=== PATIENT | female | born 1985 | race Caucasian/White ===

== ENCOUNTER 2017-03-11 13:46 | Emergency (ER) | payer SELFPAY ==
[~2017-03-11] VITALS: Ht 162.6 cm; Wt 84.7 kg
[2017-03-11 13:48] VITALS: BP 112/63; PULSE 66; RESP 15; TEMP 98.2; O2SAT 99
--- NOTE | 2017-03-11 16:32 | PD ---
HPI Chief Complaint: Eye Problems/Injury Time Seen by Provider: 15:20 Travel History International Travel<30 days: No Contact w/Intl Traveler<30days: No Traveled to known affect area: No History of Present Illness HPI 31-year-old female presents to the emergency room for evaluation of bilateral eye drainage, redness, and itching for the past week. Patient is [place]- speaking and appellate law clerk was used throughout history and physical exam. Patient states she developed bilateral itching but has not done anything for her symptoms. Drainage is clear and constant. She has associated cough and sore throat but denies any other upper respiratory symptoms. Denies fever. She denies eye pain, changes in visual acuity, and photophobia. She does not wear contacts. Denies chronic medical conditions or daily medications. [facility] Social History Tobacco Use: No Allergies-Medications (Allergen,Severity, Reaction): Coded Allergies: No Known Allergies (Unverified , 03/11/17) Reported Meds & Prescriptions Reported Meds & Active Scripts Active No Active Prescriptions or Reported Medications Review of Systems Except as stated in HPI: all other systems reviewed are Neg Physical Exam Narrative GENERAL: Well-nourished, well-developed female in no acute distress. Afebrile. Ambulatory. SKIN: Focused skin assessment warm/dry. HEAD: Normocephalic. EYES: PERRL, EOMI without pain. No proptosis. No significant injection. No scleral icterus. No obvious drainage. Fluorescein staining is negative for bilateral eyes. Visual acuity is 20/50 in the left and 20/25 in the right. NECK: Supple, trachea midline. No JVD or lymphadenopathy. CARDIOVASCULAR: Regular rate and rhythm without murmurs, gallops, or rubs. RESPIRATORY: Breath sounds equal bilaterally. No accessory muscle use. PSYCHIATRIC: No delusional thought processes. No hallucinations. Data Data Last Documented VS Vital Signs Date Time Temp Pulse Resp B/P (MAP) Pulse Ox O2 Delivery O2 Flow Rate FiO2 03/11/17 13:48 98.2 66 15 112/63 (79) 99 Orders Orders Vital Signs (Adult) Q4H (03/11/17 15:44) Activity Oob With Assistance (03/11/17 15:44) Notify Dr: Other (03/11/17 15:44) [facility] Medical Decision Making Medical Screen Exam Complete: Yes Emergency Medical Condition: Yes Medical Record Reviewed: Yes Differential Diagnosis Conjunctivitis, corneal abrasion, allergies Narrative Course 31-year-old female presents to the emergency room for evaluation of bilateral eye tearing, redness, and itchiness for the past week. She is primarily [place] -speaking and appellate law clerk was used throughout history and physical exam. Visit was slightly delayed because of difficulty establishing with appellate law clerk. Patient has had associated mild upper respiratory symptoms. Physical exam is unremarkable. PERRL, EOMI without pain. No proptosis. No significant injection. No scleral icterus. No obvious drainage. Fluorescein staining is negative for bilateral eyes. Visual acuity is 20/50 in the left and 20/25 in the right. This is likely allergies. Patient was told to use [id number] antihistamine drops and follow-up with a primary care physician or return for worsening symptoms. I see no indication for antibiotic treatment at this time. She understands and agrees to plan. Diagnosis Primary Impression: Allergic conjunctivitis Qualified Codes: H10.13 - Acute atopic conjunctivitis, bilateral Referrals: Primary Care Physician Additional Instructions: [id number] antihistamine drops. Follow-up with a primary care physician. Return to the emergency room for worsening symptoms. Med/Other Pt SpecificInfo: Prescription(s) given Scripts No Active Prescriptions or Reported Meds Disposition: 01 DISCHARGE HOME Condition: Arlene Elise Mar 11, 2017 16:32
== END 2017-03-11 17:02 | disposition home or self-care (01) ==
LOC: NEPK 13:46
DX: H10.13 Acute atopic conjunctivitis, bilateral (principal)
CPT/HCPCS: 99283